=== PATIENT | male | born 1965 | race African-American/Black ===

== ENCOUNTER 2022-03-05 18:26 | Observation (INO) | payer BC ==
[2022-03-05 19:01] LABS: Absolute Lymphocytes (CBC) 1.5 K/uL (0.7-4.9); Hematocrit 41.2 % (39.6-49.0); Lymphocytes % 22.4 % (15.3-44.8); MPV 7.6 fL (7.6-11.3); RBC Red Blood Cell Count 4.61 M/uL (4.33-5.43)
[2022-03-05 19:11] LABS: Protime INR 0.99
[2022-03-05 19:21] LABS: Albumin 3.6 g/dL (3.4-5.0); Bilirubin Direct 0.1 mg/dL (0-0.2); Bilirubin Total 0.4 mg/dL (0.2-1.0); Potassium 4.2 mmol/L (3.5-5.1); Protein, Total 7.1 g/dL (6.4-8.2); Troponin High Sensitivity 5.8 pg/mL (<58.9)
[2022-03-05] MEDS ORDERED: NA CHLORIDE 0.9% 1,000 ML ONE (19:44)
--- NOTE | 2022-03-05 19:55 | RAD REPORT ---
EXAM DESCRIPTION: CT - Head Brain Wo Cont - 03/05/2022 7:49 pm CLINICAL HISTORY: Neuro deficit, acute, stroke suspected Headache, drowsiness, CVA symptomology COMPARISON: Head angio dated 03/05/2022 TECHNIQUE: All CT scans are performed using dose optimization technique as appropriate and may inclu de automated exposure control or mA/KV adjustment according to patient size. FINDINGS: No intracranial hemorrhage, hydrocephalus or extra-axial fluid collection.Mild generalized brain atrophy noted.No areas of brain edema or evidence of midline shift. The paranasal sinuses and mastoids are clear. The calvarium is intact. IMPRESSION: No acute intracranial abnormality.
--- NOTE | 2022-03-05 19:55 | RAD REPORT ---
EXAM DESCRIPTION: CT - Head angio - 03/05/2022 7:49 pm CLINICAL HISTORY: Neuro deficit, acute, stroke suspected Headache, drowsiness, CVA symptomology COMPARISON: No comparisons TECHNIQUE: CT angiography of the head was performed with MIPs. All CT scans are performed using dose optimization technique as appropriate and may include automated exposure control or mA/KV adjustment according to patient size. FINDINGS: No evidence of aneurysm is detected. No flow-limiting stenosis or vascular malformation id entified. Antegrade flow is seen in the vertebral arteries. The vertebral arteries are codominant. The visualized dural venous sinuses are patent. IMPRESSION: No significant flow abnormality is detected.
--- NOTE | 2022-03-05 20:10 | RAD REPORT ---
EXAM DESCRIPTION: RAD - Chest Single View - 03/05/2022 7:59 pm CLINICAL HISTORY: CHEST PAIN Chest pain. COMPARISON: No comparisons FINDINGS: Portable technique limits examination quality. The lungs are grossly clear. The heart is normal in size. No displaced fractures. IMPRESSION: No acute intrathoracic process suspected.
--- NOTE | 2022-03-05 20:13 | ER ---
Nurse's Notes [facility] Name: Steve Farias Age: 57 yrs Sex: Male : 1965 Arrival Date: 03/05/2022 Time: 18:27 Bed 2 Private MD: Diagnosis: Weakness;Paresthesia of skin Presentation: 03/05 18:34 Chief complaint: Patient states: chest pain recent dx TIA. Coronavirus screen: Vaccine jensen status: Patient reports receiving the 2nd dose of the covid vaccine. Ebola Screen: Patient denies travel to an Ebola-affected area in the 21 days before illness onset. Initial Sepsis Screen: Does the patient meet any 2 criteria? No. Patient's initial sepsis screen is negative. Does the patient have a suspected source of infection? No. Patient's initial sepsis screen is negative. Risk Assessment: Do you want to hurt yourself or someone else? Patient reports no desire to harm self or others. Onset of symptoms was March 05, 2022. 18:34 Method Of Arrival: Ambulatory jensen 18:34 Acuity: DENA 3 jensen Historical: - Allergies: 18:36 No Known Allergies; jensen - Immunization history:: Adult Immunizations up to date. - Social history:: Smoking status: Patient reports use of chewing tobacco. - Family history:: not pertinent. - Hospitalizations: : No recent hospitalization is reported. Screenin:20 Abuse screen: Denies threats or abuse. Denies injuries from another. Abuse screen: kd3 Denies threats or abuse. Denies injuries from another. Nutritional screening: No deficits noted. Tuberculosis screening: No symptoms or risk factors identified. Fall Risk IV access (20 points). Assessment: 19:19 General: Appears in no apparent distress. Behavior is calm, cooperative. Pain: Denies kd3 pain. Neuro: Level of Consciousness is awake, alert, obeys commands, Oriented to person, place, time, situation. Cardiovascular: Patient's skin is warm and dry. Respiratory: Airway is patent Trachea midline Respiratory effort is even, unlabored, Respiratory pattern is regular, symmetrical. 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 kd3 Vital Signs: 18:34 BP 163 / 84; Pulse 80; Resp 19; Temp 99.1; Pulse Ox 100% on R/A; Weight 103.42 kg; jensen Height 5 ft. 7 in. (170.18 cm); 19:19 BP 167 / 83; Pulse 72; Resp 13; Pulse Ox 99% on R/A; kd3 22:02 BP 146 / 80; Pulse 66; Resp 19; Pulse Ox 98% on R/A; kd3 18:34 Body Mass Index 35.71 (103.42 kg, 170.18 cm) jensen ED Course: 18:27 Patient arrived in ED. as 18:36 Triage completed. jensen 18:54 Inserted saline lock: 20 gauge in right antecubital area, using aseptic technique. mb7 Blood collected. 18:54 EKG done, by ED staff, reviewed by Marcy Moore MD. mb7 18:54 Patient has correct armband on for positive identification. Bed in low position. Call mb7 light in reach. Side rails up X 1. Door closed. Noise minimized. Warm blanket given. 18:55 Basic Metabolic Panel Sent. mb7 18:55 CBC with Diff Sent. mb7 18:55 LFT's Sent. mb7 18:55 Magnesium Sent. mb7 18:55 NT PRO-BNP Sent. mb7 18:55 PT-INR Sent. mb7 18:55 Troponin HS Sent. mb7 18:56 Client placed on continuous cardiac and pulse oximetry monitoring. NIBP monitoring mb7 applied. conveyor monitor on. Pulse ox on. 18:58 Isacc Benitez MD is Attending Physician. rn 19:08 Tye Leong RN is Primary Nurse. as6 19:21 Arm band placed on right wrist. kd3 19:50 CT Head Brain wo Cont In Process Unspecified. EDMS 19:51 CT Head Angio In Process Unspecified. EDMS 20:01 XRAY Chest (1 view) In Process Unspecified. EDMS 20:12 Marcy Marino MD is Hospitalizing Provider. rn 22:00 No provider procedures requiring assistance completed. Patient admitted, IV remains in kd3 place. Administered Medications: 19:54 Drug: NS 0.9% 1000 ml Route: IV; Rate: 1000 ml; Site: right antecubital; kd3 22:01 Follow up: Response: No adverse reaction; IV Status: Completed infusion kd3 20:37 Drug: foLIC Acid 1 mg Route: IVPB; Site: right antecubital; kd3 20:37 Follow up: Response: No adverse reaction; IV Status: Completed infusion kd3 22:01 Follow up: Response: No adverse reaction; IV Status: Completed infusion kd3 20:38 Drug: Insulin Regular Human 10 units {Co-Signature: sm5 (Bessy Garber RN).} Route: kd3 Sub-Q; Site: left lower abdomen; 22:01 Follow up: Response: No adverse reaction kd3 20:38 Drug: Aspirin 325 mg Route: PO; kd3 22:01 Follow up: Response: No adverse reaction kd3 Medication: 19:21 VIS not applicable for this client. kd3 Outcome: 20:12 Decision to Hospitalize by Provider. rn 22:00 Admitted to Med/surg room 213. kd3 22:00 Condition: stable 22:00 Discharge instructions given to patient, Instructed on the need for admit. 22:13 Patient left the ED. as6 Signatures: Dispatcher [employer] Soo Agarwal Roman, MD MD rn Slawson, Ashby, RN RN as6 Suni Harry RN RN kd3 Jackie Wood 7 Virginia Delgado RN JANETH jensen Bessy lion5
--- NOTE | 2022-03-05 20:13 | EDPHYS ---
Physician Documentation [facility] Name: Steve Farias Age: 57 yrs Sex: Male : 1965 Arrival Date: 03/05/2022 Time: 18:27 Bed 2 Private MD: ED Physician Isacc Benitez HPI: 03/05 19:21 This 57 yrs old Black Male presents to ER via Ambulatory with complaints of tingling, rn weakness. 19:21 The patient presents to the emergency department with weakness of the left upper rn extremity, left lower extremity, paresthesias of the. Onset: The symptoms/episode began/occurred 3 day(s) ago. Context: occurred at home, occurred while the patient was at rest. Associated signs and symptoms: Pertinent positives: paresthesias, weakness, Pertinent negatives: fever, headache, neck stiffness. Severity of symptoms: At their worst the symptoms were mild in the emergency department the symptoms are worse. The patient has not experienced similar symptoms in the past. The patient has been recently seen by a physician:. 19:27 Pt and report. rn Historical: - Allergies: 18:36 No Known Allergies; jensen - Immunization history:: Adult Immunizations up to date. - Social history:: Smoking status: Patient reports use of chewing tobacco. - Family history:: not pertinent. - Hospitalizations: : No recent hospitalization is reported. ROS: 19:31 Constitutional: Negative for fever, chills, and weight loss, Eyes: Negative for injury, rn pain, redness, and discharge, Neck: Negative for injury, pain, and swelling, Cardiovascular: Negative for palpitations, and edema, Respiratory: Negative for shortness of breath, cough, wheezing, and pleuritic chest pain, Abdomen/GI: Negative for abdominal pain, nausea, vomiting, diarrhea, and constipation, MS/Extremity: Negative for injury and deformity, Skin: Negative for injury, rash, and discoloration, Neuro: Negative for headache, and seizure Exam: 20:09 Constitutional: This is a well developed, well nourished patient who is awake, alert, rn and in no acute distress. Head/Face: Normocephalic, atraumatic. Eyes: Pupils equal round and reactive to light, extra-ocular motions intact. Cardiovascular: Regular rate and rhythm. No pulse deficits. Respiratory: No increased work of breathing, no retractions or nasal flaring. Abdomen/GI: Soft, non-tender Skin: Warm, dry MS/ Extremity: Pulses equal, no cyanosis. Neuro: Awake and alert, GCS 15, oriented to person, place, time, and situation. Cranial nerves II-XII grossly intact. Motor strength 5/5 RUE/RLE, 4/5 LUE/LLE with decreased left scaffold builder strength. + decreased sensation LUE/LLE. Vital Signs: 18:34 BP 163 / 84; Pulse 80; Resp 19; Temp 99.1; Pulse Ox 100% on R/A; Weight 103.42 kg; jensen Height 5 ft. 7 in. (170.18 cm); 19:19 BP 167 / 83; Pulse 72; Resp 13; Pulse Ox 99% on R/A; kd3 22:02 BP 146 / 80; Pulse 66; Resp 19; Pulse Ox 98% on R/A; kd3 18:34 Body Mass Index 35.71 (103.42 kg, 170.18 cm) jensen MDM: 18:58 Patient medically screened. rn 20:09 Data reviewed: vital signs, nurses notes, lab test result(s), EKG, radiologic studies, rn CT scan, and as a result, I will admit patient. Counseling: I had a detailed discussion with the patient and/or guardian regarding: the historical points, exam findings, and any diagnostic results supporting the discharge/admit diagnosis, lab results, radiology results, the need for further work-up and treatment in the hospital. Response to treatment: There is no appreciated change of the patient's symptoms at this time, and as a result, I will admit patient. Admission orders: after a detailed discussion of the patient's condition and case, the admit orders are written by me. ED course: Pt with unilateral neurological symptoms for 3 days, no acute findings on CT/CT head angio, will admit for MRI in AM. Spoke with radiology, MRI available tomorrow morning. . 03/05 18:36 Order name: Basic Metabolic Panel; Complete Time: 19:31 ma2 03/05 18:36 Order name: CBC with Diff; Complete Time: 19:16 ma2 03/05 18:36 Order name: LFT's; Complete Time: 19:31 ma2 03/05 18:36 Order name: Magnesium; Complete Time: 19:31 ma2 03/05 18:36 Order name: NT PRO-BNP; Complete Time: 19:31 ma2 03/05 18:36 Order name: PT-INR; Complete Time: 19:16 ma2 03/05 18:36 Order name: Troponin HS; Complete Time: 19:31 ma2 03/05 18:36 Order name: XRAY Chest (1 view); Complete Time: 20:14 ma2 03/05 19:04 Order name: Glucose, Ancillary Testing; Complete Time: 19:16 EDMS 03/05 19:16 Order name: CT Head Brain wo Cont; Complete Time: 20:09 rn 03/05 19:18 Order name: CT Head Angio; Complete Time: 20:09 rn 18 19:19 Order name: SARS-COV-2 RT PCR (Document "Date of Onset" if Symptomatic); Complete Time: rn 21:13 03/05 20:47 Order name: Glucose, Ancillary Testing; Complete Time: 21:05 EDMS 03/05 18:36 Order name: EKG; Complete Time: 18:37 ma2 03/05 18:36 Order name: Cardiac monitoring; Complete Time: 18:39 ma2 03/05 18:36 Order name: EKG - Nurse/Tech; Complete Time: 18:39 ma2 03/05 18:36 Order name: IV Saline Lock; Complete Time: 18:54 ma2 03/05 18:36 Order name: Labs collected and sent; Complete Time: 18:55 ma2 03/05 18:36 Order name: O2 Per Protocol; Complete Time: 18:39 ma2 03/05 18:36 Order name: O2 Sat Monitoring; Complete Time: 18:39 ma2 03/05 18:56 Order name: Glucose Level; Complete Time: 19:08 mb7 Administered Medications: 19:54 Drug: NS 0.9% 1000 ml Route: IV; Rate: 1000 ml; Site: right antecubital; kd3 22:01 Follow up: Response: No adverse reaction; IV Status: Completed infusion kd3 20:37 Drug: foLIC Acid 1 mg Route: IVPB; Site: right antecubital; kd3 20:37 Follow up: Response: No adverse reaction; IV Status: Completed infusion kd3 22:01 Follow up: Response: No adverse reaction; IV Status: Completed infusion kd3 20:38 Drug: Insulin Regular Human 10 units {Co-Signature: sm5 (Bessy Garber RN).} Route: kd3 Sub-Q; Site: left lower abdomen; 22:01 Follow up: Response: No adverse reaction kd3 20:38 Drug: Aspirin 325 mg Route: PO; kd3 22:01 Follow up: Response: No adverse reaction kd3 Disposition Summary: 03/05/22 20:12 Hospitalization Ordered Hospitalization Status: Observation rn Provider: Marcy Marino rn Location: Telemetry/MedSurg (observation) rn Condition: Stable rn Problem: new rn Symptoms: have improved rn Bed/Room Type: Standard rn Room Assignment: 213(03/05/22 21:31) mw Diagnosis - Weakness rn - Paresthesia of skin rn Forms: - Medication Reconciliation Form rn - SBAR form rn Signatures: Dispatcher [employer] Khalida Espinoza RN RN Isacc Epperson MD MD rn Alzahri, Mohammad, MD MD ma2 Suni Harry RN RN [id number] Jackie Wood mb7 Virginia Delgado, RN Verna Taveras PA PA sb3 Bessy Garber RN sm5 Corrections: (The following items were deleted from the chart) : 20:12 rn stacy
[2022-03-05] MEDS ORDERED: ASPIRIN 81 MG CHEWABLE TABLET ONE (20:27)
[2022-03-05] MEDS ORDERED: FOLIC ACID 5 MG/ML VIAL ONE (20:28)
[2022-03-05] MEDS ORDERED: INSULIN -REGULAR HUMAN 50 UNIT/0.5 ML ML ONE (20:30)
--- NOTE | 2022-03-05 21:29 | P.HP ---
Certification for Inpatient Patient admitted to: Observation With expected LOS: <2 Midnights Patient will require the following post-hospital care: None Practitioner: I am a practitioner with admitting privileges, knowledge of patient current condition, hospital course, and medical plan of care. Services: Services provided to patient in accordance with Admission requirements found in Title 42 Section 412.3 of the Code of Federal Regulations Patient History Date of Service: 03/05/22 Reason for admission: CVA R/O History of Present Illness: Patient is a 57-year-old male with PMH of IDDM, hypertension, hyperlipidemia who presented to the ED with complaints of left arm numbness. He reports that this began about 48 hours ago and was seen at the [place] ED. He had a CT head done that was negative and CT head and neck angio that showed 70% stenosis in the vertebral artery. He returns today as symptoms have not improved. Decreased strength noted in left arm and leg. Sensation intact. Neurologic exam otherwise benign. CT head as well as CTA head neck angio negative. Labs without significant abnormalities. He was given folic acid, aspirin, and insulin in the ED. Will admit patient for observation for CVA rule out with stroke protocol MRI in the morning. Allergies Unable to Assess Allergy (Unverified 03/05/22 21:29) Home medications list reviewed: Yes - Past Medical/Surgical History Diabetic: Yes -: Type 2 Diabetes, Insulin Dependent -: Hypertension -: Hyperlipidemia -: Appendectomy Psychosocial/ Personal History: Patient lives at home with his . - Family History Sister -: Heart disease - Social History Smoking Status: Current every day smoker (chews tobacco, smokes cigars) Alcohol use: Yes CD- Drugs: No Caffeine use: Yes Place of Residence: Home Review of Systems Cardiovascular: Chest Pain Neurological: Weakness, Numbness (left sided) Physical Examination - Physical Exam General: Alert, In no apparent distress HEENT: Atraumatic, PERRLA, EOMI, Sclerae nonicteric Neck: Supple, 2+ carotid pulse no bruit, No LAD, Without JVD or thyroid abnormality Respiratory: Clear to auscultation bilaterally, Normal air movement Cardiovascular: Regular rate/rhythm, Normal S1 S2 Gastrointestinal: Normal bowel sounds, No tenderness Musculoskeletal: No tenderness Integumentary: No rashes Neurological: Normal speech, Sensation intact, Normal affect, Abnormal strength - Studies Laboratory Data (last 24 hrs) 03/05/22 18:47: PT 10.9, INR 0.99 03/05/22 18:47: WBC 6.5, Hgb 13.5 L, Hct 41.2, Plt Count 276 03/05/22 18:47: Sodium 136, Potassium 4.2, BUN 22 H, Creatinine 1.60 H, Glucose 368 H, Magnesium 2.0, Total Bilirubin 0.4, AST 9 L, ALT 24, Alkaline Phosphatase 130 H Assessment and Plan - Problems (Diagnosis) (1) Type 2 diabetes mellitus Current Visit: Yes Status: Acute Qualifiers: Diabetes mellitus buttermaker insulin use: with assisted use Diabetes mellitus complication status: with hyperglycemia Qualified Code(s): E11.65 - Type 2 diabetes mellitus with hyperglycemia; Z79.4 - nursing home (current) use of insulin (2) Left-sided weakness Current Visit: Yes Status: Acute (3) Hypertension Current Visit: Yes Status: Chronic Qualifiers: Hypertension type: primary hypertension Qualified Code(s): I10 - Essential (primary) hypertension (4) Hyperlipidemia Current Visit: Yes Status: Chronic Qualifiers: Hyperlipidemia type: unspecified Qualified Code(s): E78.5 - Hyperlipidemia, unspecified - Plan -MRI stroke protocol ordered for AM (radiology was contacted and will be available) -Dr. Oviedo consulted -Continue daily folic acid, aspirin, and statin -Lipid panel ordered for morning. Patient states he takes a statin daily but has never seen pattern finisher [facility]-Cheks with moderate sliding scale insulin as patient has been hyperglycemic -Reconcile continue home medication -Lovenox for VTE prophylaxis Discharge Plan: Home Plan to discharge in: 24 Hours - Advance Directives Does patient have a Living Will: No Does patient have a Durable POA for Healthcare: No - Code Status/Comfort Care Code Status Assessed: Yes (Full) Critical Care: No Time Spent Managing Pts Care (In Minutes): 50
[2022-03-05] MEDS ORDERED: HYDRALAZINE HCL 20 MG/ML VIAL IV PRN (22:10)
[2022-03-05] MEDS ORDERED: ONDANSETRON 4 MG/2 ML VIAL IV PRN (22:10)
[2022-03-05] MEDS ORDERED: ACETAMINOPHEN 500 MG TAB PO PRN (22:10)
[2022-03-05] MEDS ORDERED: INSULIN -REGULAR HUMAN 50 UNIT/0.5 ML ML SQ PRN (22:14)
[2022-03-05 22:43] VITALS: BMI 35.0
[2022-03-05 22:53] VITALS: O2SAT 98
[2022-03-06 01:45] LABS: Urine Appearance Clear (Clear); Urine Bilirubin Negative (Negative); Urine Blood Trace-lysed (Negative); Urine Color Yellow (Yellow); Urine Glucose 2+ (Negative); Urine Microscopic Reflex ORDER UMIC; Urine Protein Negative (Negative); Urine Specific Gravity 1.015 (1.005-1.030); Urine Urobilinogen 0.2 mg/dL (0.2-1.0)
[2022-03-06 01:52] LABS: Urine Bacteria <20 /HPF (NONE SEEN); Urine RBC <5 /HPF (NONE SEEN)
[2022-03-06 01:53] LABS: Urine Mucus 1+ /HPF (NONE SEEN)
[2022-03-06 04:43] LABS: Thyroid Stimulating Hormone 2.23 uIU/mL (0.360-3.740)
[2022-03-06] MEDS: ENOXAPARIN 40 MG/0.4 ML SQ SCH (08:27)
[2022-03-06] MEDS: FOLIC ACID 1 MG TABLET PO SCH (08:27)
[2022-03-06] MEDS: ASPIRIN EC 81 MG TAB PO SCH (08:27)
[2022-03-06] MEDS: INSULIN -REGULAR HUMAN 50 UNIT/0.5 ML ML SQ SCH ×4 (08:28→21:05)
--- NOTE | 2022-03-06 11:54 | P.PN ---
Subjective Date of Service: 03/06/22 Chief Complaint: CVA R/O Patient reports experiencing both left upper extremity and left lower extremity weakness prior to presentation. He reports significant improvement in the left extremity weakness. He denies any trouble with swallowing or speech. Physical Examination - Vital Signs Temperature: 97.4 F Blood Pressure: 145/70 Pulse: 60 Respirations: 16 Pulse Ox (%): 98 - Physical Exam General: Alert, In no apparent distress, Oriented x3 HEENT: Mucous membr. moist/pink, Sclerae nonicteric Neck: Supple, JVD not distended Respiratory: Clear to auscultation bilaterally, Normal air movement Cardiovascular: No edema, Regular rate/rhythm, Normal S1 S2, No murmurs Gastrointestinal: Normal bowel sounds, Soft and benign, Non-distended, No tenderness Musculoskeletal: No swelling, No tenderness Integumentary: No rashes, No cyanosis Neurological: Other (Mild left facial droop) - Studies Laboratory Data (last 24 hrs) 03/05/22 18:47: PT 10.9, INR 0.99 03/05/22 18:47: WBC 6.5, Hgb 13.5 L, Hct 41.2, Plt Count 276 03/05/22 18:47: Sodium 136, Potassium 4.2, BUN 22 H, Creatinine 1.60 H, Glucose 368 H, Magnesium 2.0, Total Bilirubin 0.4, AST 9 L, ALT 24, Alkaline Phosphatase 130 H Assessment And Plan - Current Problems (Diagnosis) (1) Acute CVA (cerebrovascular accident) Current Visit: Yes Status: Acute (2) Type 2 diabetes mellitus Current Visit: Yes Status: Acute Qualifiers: Diabetes mellitus long-term insulin use: with long-term use Diabetes mellitus complication status: with hyperglycemia Qualified Code(s): E11.65 - Type 2 diabetes mellitus with hyperglycemia; Z79.4 - rodent exterminator (current) use of insulin (3) Hyperlipidemia Current Visit: Yes Status: Chronic Qualifiers: Hyperlipidemia type: unspecified Qualified Code(s): E78.5 - Hyperlipidemia, unspecified (4) Hypertension Current Visit: Yes Status: Chronic Qualifiers: Hypertension type: primary hypertension Qualified Code(s): I10 - Essential (primary) hypertension - Plan Patient's symptoms are consistent with acute CVA. Aspirin, Plavix, folic acid. MRI of the brain to confirm CVA tomorrow. Permissive hypertension. PT evaluation. Neurochecks. Dr. Oviedo is not available today. Neurology consult tomorrow. Continue home insulin regimen. Insulin sliding scale.
--- NOTE | 2022-03-06 16:56 | RAD REPORT ---
EXAM DESCRIPTION: MRI - MRA Head Wo Cont - 03/06/2022 4:42 pm CLINICAL HISTORY: left sided weakness CVA COMPARISON: Head angio dated 03/05/2022; Brain Wo Cont dated 03/06/2022 FINDINGS: 3D noncontrast [id number] MR angiography of the [facility] [place] was performed. Both supraclinoid ICAs are small in caliber but are patent. No large vessel occlusion. No aneurysm, flow-limiting stenosis or vascular malformation is seen. Forward flow seen in codominant vertebral arteries. The visualized dural venous sinuses appear patent. IMPRESSION: The bilateral supraclinoid ICAs are small in caliber but patent. No large vessel occlusi on is identified.
[2022-03-06] MEDS ORDERED: HUMALOG MIX 75/25 100 UNITS/ML SQ SCH (17:00)
--- NOTE | 2022-03-06 17:06 | RAD REPORT ---
EXAM DESCRIPTION: MRI - Brain Wo Cont - 03/06/2022 4:42 pm CLINICAL HISTORY: left sided weakness COMPARISON: MRA Head Wo Cont dated 03/06/2022 TECHNIQUE: Sagittal T1-weighted images were obtained along with PD/heavily T2-weighted and T2-FLAIR images. Axial DWI and ADC mapping sequences were also obtained along with coronal heavily T2-weighted images were obtained. FINDINGS: No intracranial hemorrhage, mass or acute infarction. There is no edema or shift of midlin e structures. No extra-axial fluid collections. Signal voids are seen as a normal finding in the betty r intracranial vessels. No significant white matter disease. Mild age advanced cerebral atrophy. Mastoid air cells and paranasal sinuses are clear. IMPRESSION: No acute intracranial abnormality. Specifically, no evidence of acute infarct.
[2022-03-06] MEDS ORDERED: ATORVASTATIN 40 MG TAB PO SCH (21:00)
[2022-03-06] MEDS ORDERED: EZETIMIBE 10 MG TAB PO SCH (21:00)
[2022-03-06] MEDS ORDERED: TRAZODONE 50 MG TABLET PO SCH (21:00)
[2022-03-07 04:31] LABS: Absolute Lymphocytes (CBC) 1.3 K/uL (0.7-4.9); Hematocrit 38.2 % (39.6-49.0); Lymphocytes % 19.6 % (15.3-44.8); MPV 7.6 fL (7.6-11.3); RBC Red Blood Cell Count 4.36 M/uL (4.33-5.43)
[2022-03-07 04:48] LABS: Potassium 3.8 mmol/L (3.5-5.1)
[2022-03-07] MEDS: INSULIN -REGULAR HUMAN 50 UNIT/0.5 ML ML SQ SCH (07:30)
[2022-03-07 08:00] VITALS: BP 122/59; TEMP 97.1
[2022-03-07] MEDS ORDERED: HUMALOG MIX 75/25 100 UNITS/ML SQ SCH (09:00)
[2022-03-07] MEDS ORDERED: CLOPIDOGREL 75 MG TABLET PO SCH (09:00)
[2022-03-07] MEDS: ASPIRIN EC 81 MG TAB PO SCH (09:08)
[2022-03-07] MEDS: FOLIC ACID 1 MG TABLET PO SCH (09:08)
[2022-03-07] MEDS: ENOXAPARIN 40 MG/0.4 ML SQ SCH (09:09)
--- NOTE | 2022-03-07 11:53 | EKG ---
Test Date: 2022-03-05 Test Time: 18:33:26 [employer] Specialist: MB MEASUREMENT RESULTS: Intervals: Rate: 72 HI: 150 QRSD: 98 QT: 380 QTc: 416 [place]: P: 82 HI: 150 QRS: 64 T: 61 INTERPRETIVE STATEMENTS: Normal sinus rhythm Normal ECG No previous ECG available for comparison Electronically Signed On 03-07-22 11:50:24 CDT by Damon Mancilla
== END 2022-03-07 10:30 | disposition home or self-care (01) ==
LOC: ER 18:26 → 2ND 21:22
PROVIDERS: ADMIT Internal Medicine; ATTEND Internal Medicine
DX: I63.9 Cerebral infarction, unspecified (principal); I10 Essential (primary) hypertension; R07.9 Chest pain, unspecified; E11.65 Type 2 diabetes mellitus with hyperglycemia; E78.5 Hyperlipidemia, unspecified; F17.220 Nicotine dependence, chewing tobacco, uncomplicated; F17.290 Nicotine dependence, other tobacco product, uncomplicated; Z79.4 Long term (current) use of insulin; Z20.822 Contact with and (suspected) exposure to COVID-19; Z82.49 Family history of ischemic heart disease and other diseases of the circulatory system
CPT/HCPCS: 96361; 93005; 87088; 85025 ×2; 87086; 80048 ×2; 36415 ×2; 83735; 85610; 80061; 82947 ×10; 80076; 84443; 84484; 83880; 70450; 70496; 71045; 70551; 70544; 97161; 96372; 96374; 99285; U0003; Q9967; J1815 ×7; J1650 ×2; J7030; G0378 ×3; 81003; 81015